=== PATIENT | male | born 1940 | race Hispanic/Latino ===

== ENCOUNTER 2017-05-12 18:50 | Emergency (ER) | payer OTHER ==
[2017-05-12 19:23] VITALS: BP 163/92; PULSE 68; RESP 18; TEMP 98.1; O2SAT 97; BMI 24.3
[2017-05-12] MEDS ORDERED: TDAP Vaccine 0.5 mL Syr IM ONE (19:23)
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
== END 2017-05-12 21:29 | disposition home or self-care (01) ==
LOC: ED 18:50
DX: S01.111A Laceration without foreign body of right eyelid and periocular area, initial encounter (principal); V43.52XA Car driver injured in collision with other type car in traffic accident, initial encounter; Z23 Encounter for immunization; I10 Essential (primary) hypertension; E78.5 Hyperlipidemia, unspecified; E11.9 Type 2 diabetes mellitus without complications; E03.9 Hypothyroidism, unspecified